=== PATIENT | male | born 1965 | race Caucasian/White ===

== ENCOUNTER 2019-03-31 09:03 | Day surgery (SDC) | payer OTHER ==
[2019-03-31] MEDS: SOD CHLORIDE 0.9% 1,000 ML IV (10:18)
[2019-03-31] MEDS ORDERED: HYDROCODONE/APAP (5/325) TAB PO (11:00)
[2019-03-31] MEDS ORDERED: MIDAZOLAM 1 MG/ML 2 ML INJ (11:56)
[2019-03-31] MEDS ORDERED: LIDOCAINE 1% (MDV) 20 ML INJ (11:56)
[2019-03-31] MEDS ORDERED: PROPOFOL 20 ML (11:56)
[2019-03-31] MEDS ORDERED: FENTAnyl 50 MCG/ML VIAL (11:56)
[2019-03-31] MEDS ORDERED: SUGAMMADEX SODIUM 200 MG/2 ML VIAL IV (11:58)
[2019-03-31] MEDS ORDERED: ROPIVACAINE 0.2% 20 ML VIAL (12:24)
[2019-03-31] MEDS ORDERED: FAMOTIDINE 20 MG INJ (12:24)
[2019-03-31] MEDS ORDERED: DIPHENHYDRAMINE 50 MG INJ IV (12:30)
[2019-03-31] MEDS ORDERED: MEPERIDINE 25 MG INJ IV (12:30)
[2019-03-31] MEDS ORDERED: OXYCODONE/ACETAMINOPHEN (5/325) TAB PO (12:30)
[2019-03-31] MEDS ORDERED: ONDANSETRON 4 MG INJ IV (12:30)
[2019-03-31] MEDS ORDERED: HYDROmorphONE 1 MG/5 ML IV SYRINGE IV ×3 (12:30)
[2019-03-31] MEDS ORDERED: POLYMYXIN/BACITRACIN 1L IRRIG (12:39)
[2019-03-31] MEDS: CEFAZOLIN 2 GM/50 ML (PMX) 50 ML IVPB (12:50)
[2019-03-31] MEDS ORDERED: CEFAZOLIN 1 GM INJ (12:51)
[2019-03-31] MEDS ORDERED: DEXAMETHASONE 4 MG/ML 5 ML INJ (12:52)
[2019-03-31] MEDS ORDERED: ONDANSETRON 4 MG INJ (12:52)
[2019-03-31] MEDS: OXYCODONE/ACETAMINOPHEN (5/325) TAB PO (14:18)
== END 2019-03-31 15:13 | disposition home or self-care (01) ==
LOC: SDS 09:03
DX: K40.30 Unilateral inguinal hernia, with obstruction, without gangrene, not specified as recurrent (principal)
CPT/HCPCS: 49507